=== PATIENT | female | born 1950 | race Caucasian/White ===

== ENCOUNTER 2021-01-08 10:54 | Emergency (ER) | payer MEDICARE, OTHER ==
[~2021-01-08 10:54] MED LIST: IBUPROFEN600 MG PO; IBUPROFEN800 MG PO
[2021-01-08 12:27] LABS: HEMOGLOBIN 14.1 gm/dl (12.3-15.3); RED BLOOD COUNT 4.82 M/UL (4.00-5.10); WHITE BLOOD COUNT 7.5 K/UL (4.5-11.0)
[2021-01-08] MEDS ORDERED: MUCINEX600 MG PO (15:59)
[2021-01-08] MEDS ORDERED: ZOFRAN4 MG PO (15:59)
== END 2021-01-08 16:31 | disposition home or self-care (01) ==
LOC: ER1 10:54
PROVIDERS: Physician Assistant Medical
DX: R06.02 Shortness of breath (principal); R05.9 Cough, unspecified; Z20.822 Contact with and (suspected) exposure to COVID-19; I10 Essential (primary) hypertension; F17.210 Nicotine dependence, cigarettes, uncomplicated; Z88.0 Allergy status to penicillin
CPT/HCPCS: 71045; 80053; 82550; 82553; 83605; 83874; 83880; 84484; 85025; 87040; 93005; 94664; 96374; 99285; J2930; U0002

== ENCOUNTER → 2021-06-15 | Outpatient (CLI) | payer MEDICARE, OTHER ==
[~2021-06-15] MED LIST changes: +MUCINEX600 MG PO; +ZOFRAN4 MG PO
== END ==
LOC: KOH-I 13:53
DX: M79.672 Pain in left foot (principal); M19.072 Primary osteoarthritis, left ankle and foot
CPT/HCPCS: 73630